=== PATIENT | female | born 1950 | race Two or more races ===

== ENCOUNTER 2018-10-18 13:51 | Emergency (ER) | payer MEDICARE, MEDICAID ==
[2018-10-18] MEDS ORDERED: Lactated Ringer 1,000 ML IV ONE (14:23)
[2018-10-18] MEDS ORDERED: Clindamycin 600mg/50mL 600 MG/50 ML BAG IV ONE (14:24)
[2018-10-18] MEDS ORDERED: Piperacillin Sodium/Tazobact 3.375 gm Vial IV ONE (14:42)
[2018-10-18 14:53] LABS: % BASOPHILS 0.9 % (0.0-2.0); % EOSINOPHILS 0.9 % (0.0-5.0); % LYMPHOCYTES 10.9 % (20.0-50.0); % MONOCYTES 3.4 % (2.0-10.0); % NEUTROPHILS 83.9 % (40.0-80.0); BASOPHILE ABSOLUTE 0.1 Th/cumm (0-0.2); EOSINOPHILE ABSOLUTE 0.1 Th/cmm (0.1-0.4); HEMATOCRIT 32.2 % (41.0-60); HEMOGLOBIN 10.7 gm/dL (12-16); LYMPHOCYTE ABSOLUTE 0.7 Th/cmm (1.5-3.0); MEAN CELL VOLUME 83.9 fl (81-100); MEAN CORPUSCULAR HEMOGLOBIN 27.9 pg (27.0-31.0); MEAN CORPUSCULAR HGB CONC 33.3 pg (28.0-36.0); MEAN PLATELET VOLUME 8.6 fl; MONOCYTE ABSOLUTE 0.2 Th/cmm (0.3-1.0); NEUTROPHILE ABSOLUTE 5.7 Th/cmm (1.8-8.0); PLATELET COUNT 221 Th/cmm (150-400); RED BLOOD COUNT 3.84 Mil/cmm (3.80-5.20); WHITE BLOOD COUNT 6.8 Th/cmm (4.8-10.8)
--- NOTE | 2018-10-18 14:58 | ED Physician Chart ---
ED Chief Complaint/HPI - Patient Information Date Seen:: 10/18/18 Time Seen:: 14:21 Chief Complaint:: RLE purple and swollen History of Present Illness:: RLE purple and swollen since 09/10. Thinks that she is allergic to tape and that is why her right leg is swollen and purple. No other complaint. Allergies:: Allergies Allergy/AdvReac Type Severity Reaction Status Date / Time egg Allergy Verified 10/18/18 14:20 Vitals:: Vital Signs - 8 hr 10/18/18 14:21 Temp 98.0 F HR 133 RR 19 BP 93/56 O2 Sat % 99 Historian:: Medical Records Review:: Transfer documents Reviewed ED Review of Systems - Review of Systems General/Constitutional: No fever, No chills, No weight loss, Weakness, No diaphoresis, No edema, No loss of appetite Skin: Other (discolored right leg) Head: No headache, No light-headedness Eyes: No loss of vision, No pain, No diplopia ENT: No earache, No nasal drainage, No sore throat, No tinnitus Neck: No neck pain, No swelling, No thyromegaly, No stiffness, No mass noted Cardio Vascular: No chest pain, No palpitations, No PND, No orthopnea, No edema Pulmonary: No SOB, No cough, No sputum, No wheezing GI: No nausea, No vomiting, Diarrhea, No pain, No melena, No hematochezia, No constipation, No hematemesis G/U: No dysuria, No frequency, No hematuria Musculoskeletal: No bone or joint pain, No back pain, No muscle pain Endocrine: No polyuria, No polydipsia Psychiatric: No prior psych history, No depression, No anxiety, No suicidal ideation Hematopoietic: Bruising Allergic/Immuno: No urticaria, No angioedema Neurological: No syncope, No focal symptoms, No weakness, No paresthesia, No headache, No seizure, No dizziness, No confusion, No vertigo ED Past Medical History - Past Medical History Obtainable: No Past Medical History: HTN, DM, Other (sepsis; chronic kidney disease; anemia) Surgical History: other (R knee replacement; R hip replacement; pacemaker) Family Medical History - Family Member Mother History Unknown: Yes Ethnicity: Living Status: Hx Family Coronary Artery Disease: Yes ED Physical Exam - Physical Examination General/Constitutional: Awake, Well-developed, well-nourished, Alert, No distress, Non-toxic appearing, Ambulatory Other Gen/Cons comments:: chronically ill appearing. looks older than her stated age. Head: Atraumatic Eyes: Lids, conjuctiva normal, PERRL, EOMI Skin: Nl inspection, No rash, No skin lesions, No ecchymosis, Well hydrated, No lymphadenopathy ENMT: External ears, nose nl Neck: Nontender, No nuchal rigidity Cardio Vascular: No murmur, gallop, rubs, NL S1 S2 Other Cardio Vascular comments:: slight rales tachycardia irregularly irregular GI: No tenderness/rebounding/guarding, No organomegaly, No hernia, Normal BS's, Nondistended, No mass/bruits, No McBurney tenderness Other Extremities comments:: RLE has what appears to be purpura on them. Tender to the touch. BLE have 3 to 4+ pitting edema. Neuro/Psych: Alert/oriented, Mood normal, No focal deficits ED Assessment - Assessment General Assessment: CXR: cardiomegaly EKG from 14:33:02 p.m.: atrial fibrillation, nonspecific ST T wave changes. Assessment/Comments:: called pharmacy [facility] liaison to see whether or not we have Eliquis reversal agent at 5 p.m. No answer. Pharmacy called again at 6:22 p.m. and confirmed that they do not have [facility]. [facility] has [facility]. [place] has [facility]. called Dr. Currie at 5:[address] Currie answered back at 6:19 p.m. He agreed with transferring this patient since we don't have the reversal agent for Eliquis. [employer] (patient's insurance) called us back at 6 p.m. for need for transfer to a hospital with [facility]. No answer back from [employer]. I will arrange transfer to [facility]. SINCE THIS PATIENT HAS A GI BLEED ON ELIQUIS WITH TACHYCARDIA AND BLOOD PRESSURE LESS THAN 100, THIS QUALIFIES A LIFE-THREATENING PROBLEM AND WE WILL NOT WAIT FOR [facility]. PATIENT NEEDS A HIGHER LEVEL OF CARE [facility] TRANSFER TO [facility]. DR. JENKINS ACCEPTED PATIENT IN TRANSFER ER TO ER. FULL REPORT GIVEN TO HIM AT 7:40 P.M. ED Septic Shock - . Is Septic Shock (SBP<90, OR Lactate>4 mmol\L) present?: No - <6hrs of presentation: Vital Signs: Vital Signs - 8 hr 10/18/18 14:21 Temp 98.0 F HR 133 RR 19 BP 93/56 O2 Sat % 99 ED Reassessment (Disposition) - Diagnosis Diagnosis:: GI bleed on Eliquis (no reversal agent here) RLE purpura with elevated prothrombin time Rapid atrial fibrillation Diabetes Chronic renal insufficiency Elevated d-dimer Elevated BNP
[2018-10-18 15:03] LABS: INR 1.4 (0.5-1.4); PROTHROMBIN TIME (TEST) 14.4 SECONDS (9.5-11.5)
[2018-10-18] MEDS ORDERED: Clindamycin 150 mg/mL 4mL Vial ONE (15:29)
[2018-10-18] MEDS ORDERED: Pantoprazole 80 MG in Sodium Chloride 0.9% 100 ML IV ONE (17:11)
[2018-10-18] MEDS ORDERED: Pantoprazole 80 MG in Sodium Chloride 0.9% 100 ML IV SCH (18:00)
[2018-10-18 18:02] LABS: ALBUMIN 3.3 gm/dL (3.7-5.3); ANION GAP 17.4 (7.0-16.0); BILIRUBIN,TOTAL 1.4 mg/dL (0.3-1.0); CALCIUM SERUM 8.6 mg/dL (8.6-10.3); CARBON DIOXIDE 15.9 mEq/L (21.0-31.0); CREATININE - SERUM 1.9 mg/dL (0.6-1.2); GFR NON AFRICAN-AMERICAN 28.1 ml/min; MAGNESIUM 1.6 mg/dL (1.9-2.7); PHOSPHOROUS 3.5 mg/dL (2.5-5.0); POTASSIUM SERUM 5.3 mEq/L (3.5-5.1); TOTAL PROTEIN,SERUM 6.6 gm/dL (6.0-8.3)
--- NOTE | 2018-10-19 09:59 | Diagnostic Imaging Report ---
Portable chest x-ray HISTORY: Shortness of breath The heart is enlarged. Atherosclerotic calcification seen within the aorta. Cardiac electrode lead wire projects over the right ventricle. No focal pulmonary processes. IMPRESSION: 1. Cardiomegaly with atherosclerotic vascular changes 2. No focal pulmonary processes
--- NOTE | 2018-10-19 10:08 | Diagnostic Imaging Report ---
Bilateral lower extremity Doppler venous ultrasound exam HISTORY: Pain/swelling Sonographic sector images were obtained through the deep venous systems of both legs. Associated Doppler data was obtained. The exam demonstrates patency of the common femoral, superficial femoral, popliteal, and posterior tibial veins bilaterally. Specifically, no thrombus is seen. There are normal compressibility and augmentation responses. IMPRESSION: Negative exam for deep vein thrombophlebitis.
--- NOTE | 2018-10-19 10:14 | Diagnostic Imaging Report ---
CT scan abdomen and pelvis without intravenous contrast HISTORY: Pain, blood in stool Total DLP equals 715 CTDI equals 15.3 Axial sections were obtained from the xiphoid process down to the pubic symphysis. Limited sections the lower chest and 3. Cardiomegaly. Artifact associated with the cardiac electrode lead wires are noted. There is generalized haziness throughout the abdomen and pelvis consistent with mild diffuse ascites. The liver is enlarged. No focal lesions. The spleen is generous in size. No definite focal marrow is seen within the pancreas. Surgical clips are seen in the eva hepatis region consistent with prior cholecystectomy. Extensive atherosclerotic vascular calcification is seen. No focal renal lesions. No hydronephrosis. There is an approximate 2.0 cm defect within the anterior abdominal wall at the level of the umbilicus consistent with a fat-containing ventral/umbilical hernia. No discrete abnormal masses seen within the pelvis. Generalized thickening of the urinary bladder wall. There are small bilateral fat-containing inguinal hernias. Generalized haziness noted throughout the subcutaneous kidneys fatty tissues of the abdomen and pelvis consistent with anasarca. IMPRESSION: 1. Generalized haziness throughout the abdomen and pelvis reflecting mild diffuse ascites. 2. Anasarca 3. Status post cholecystectomy 4. Fat-containing umbilical hernia 5. Bilateral fat-containing inguinal hernias 6. Extensive atherosclerotic vascular changes
== END 2018-10-18 22:45 | disposition short-term general hospital (02) ==
LOC: ER 13:51
DX: K92.2 Gastrointestinal hemorrhage, unspecified (principal); I48.2 Chronic atrial fibrillation; I12.9 Hypertensive chronic kidney disease with stage 1 through stage 4 chronic kidney disease, or unspecified chronic kidney disease; E11.22 Type 2 diabetes mellitus with diabetic chronic kidney disease; N18.9 Chronic kidney disease, unspecified; D69.2 Other nonthrombocytopenic purpura; R79.89 Other specified abnormal findings of blood chemistry; Z79.01 Long term (current) use of anticoagulants; Z91.012 Allergy to eggs
CPT/HCPCS: 36415-UA; 71045-TC; 80053-TC; 82270-TC; 83036-90; 83735-TC; 83880-TC; 84100-TC; 84484-TC; 85025-TC; 85379-TC; 85610-TC; 85652-TC; 87046-90; 87230-TC; 93005; 93970-TC-50; C9113; J2543; J3370; X5958